=== PATIENT | female | born 1950 | race Caucasian/White ===

== ENCOUNTER 2020-10-12 13:55 | Outpatient (CLI) | payer MEDICARE, OTHER ==
[~2020-10-12 13:55] MED LIST: ESTR-9 PO; LISI-232 PO; MULT-910 PO
== END 2020-10-12 23:59 | disposition home or self-care (01) ==
LOC: RT 13:55
PROVIDERS: ATTEND Internal Medicine
DX: R94.2 Abnormal results of pulmonary function studies (principal); J44.1 Chronic obstructive pulmonary disease with (acute) exacerbation
CPT/HCPCS: 94010; 94727; 94729

== ENCOUNTER 2022-01-19 10:38 | Emergency (ER) | payer MEDICARE, OTHER ==
[~2022-01-19] VITALS: Ht 162.6 cm; Wt 0.7 kg
[2022-01-19 10:58] VITALS: BP 145/95
[2022-01-19] MEDS ORDERED: LORazepam 1 MG tablet PO ONE (11:25)
[2022-01-19] MEDS ORDERED: iohexol 300mg/ml 100ml inj. ONE (12:41)
[2022-01-19 12:56] LABS: ALBUMIN 3.9 G/DL (3.4-5.0); ANION GAP 9 (8-16); BLOOD UREA NITROGEN 12 MG/DL (7-18); BUN/CREATININE RATIO 16.9 (6.6-38.0); CALCIUM 10.1 MG/DL (8.5-10.1); CHLORIDE 98 MMOL/L (99-107); CREATININE 0.71 MG/DL (0.40-0.90); GLUCOSE 101 MG/DL (70-104); POTASSIUM 3.6 MMOL/L (3.5-5.1); SODIUM 136 MMOL/L (135-145); eGFR 81 ML/MIN
[2022-01-19 13:04] LABS: BASOPHILS % (AUTO) 0.4 % (0-1); EOSINOPHILS # (AUTO) 0.1 X10'3 (0-0.9); EOSINOPHILS % (AUTO) 1.4 % (0-6); HEMATOCRIT 41.1 % (35.0-45.0); HEMOGLOBIN 13.3 g/dl (12.0-16.0); LYMPHOCYTES # (AUTO) 2.5 X10'3 (1.1-4.8); LYMPHOCYTES % (AUTO) 27.8 % (21-51); MEAN CORPUSCULAR HEMOGLOBIN 23.3 PG (27.0-31.0); MEAN CORPUSCULAR HGB CONC 32.3 g/dL (33.0-36.5); MEAN CORPUSCULAR VOLUME 72.2 FL (78-98); MEAN PLATELET VOLUME 7.7 FL (7.4-10.4); MONOCYTES # (AUTO) 0.5 X10'3 (0-0.9); MONOCYTES % (AUTO) 5.4 % (2-12); NEUTROPHILS # (AUTO) 5.8 X10'3 (1.8-7.7); PLATELET COUNT 363 X10'3 (140-440); RED CELL DISTRIBUTION WIDTH 14.8 % (11.5-14.5); WHITE BLOOD COUNT 8.9 X10'3 (4.5-11.0)
[2022-01-19] MEDS ORDERED: AMOX-580 PO (13:58)
== END 2022-01-19 14:15 | disposition home or self-care (01) ==
LOC: ER 10:38
DX: K11.20 Sialoadenitis, unspecified (principal)
CPT/HCPCS: 36415; 70491; 80048; 85025; 99285; J3490; Q9967

== ENCOUNTER 2022-05-21 08:43 | Inpatient (IN) | payer MEDICARE, OTHER ==
[2022-05-09 14:41] LABS: BASOPHILS # (AUTO) 0.1 X10'3 (0-0.2); BASOPHILS % (AUTO) 0.6 % (0-1); EOSINOPHILS # (AUTO) 0.1 X10'3 (0-0.9); EOSINOPHILS % (AUTO) 1.5 % (0-6); LYMPHOCYTES # (AUTO) 3.2 X10'3 (1.1-4.8); MEAN CORPUSCULAR HEMOGLOBIN 23.7 PG (27.0-31.0); MEAN CORPUSCULAR HGB CONC 32.6 g/dL (33.0-36.5); MEAN CORPUSCULAR VOLUME 72.9 FL (78-98); MEAN PLATELET VOLUME 7.6 FL (7.4-10.4); MONOCYTES # (AUTO) 0.5 X10'3 (0-0.9); MONOCYTES % (AUTO) 5.8 % (2-12); NEUTROPHILS # (AUTO) 5.2 X10'3 (1.8-7.7); NEUTROPHILS % (AUTO) 57.1 % (42-75); PRE OP HEMATOCRIT 41.6 % (35.0-45.0); PRE OP HEMOGLOBIN 13.6 g/dL (12.0-16.0); PRE OP PLATELET COUNT 396 X10'3 (140-440); RED BLOOD COUNT 5.71 X10'6 (4.20-5.60); RED CELL DISTRIBUTION WIDTH 15.5 % (11.5-14.5)
[2022-05-09 15:04] LABS: ALBUMIN 4.1 G/DL (3.4-5.0); ALBUMIN/GLOBULIN RATIO 1.2 (1.1-1.5); ALKALINE PHOSPHATASE 96 IU/L (46-116); BLOOD UREA NITROGEN 11 MG/DL (7-18); BUN/CREATININE RATIO 15.9 (6.6-38.0); CHLORIDE 100 MMOL/L (99-107); CREATININE 0.69 MG/DL (0.40-0.90); PRE OP ALT 21 U/L (30-65); PRE OP ANION GAP 6 (8-16); PRE OP AST 15 U/L (10-37); PRE OP BILIRUB, TOTAL 0.6 MG/DL (0.0-1.0); PRE OP GLUCOSE 98 MG/DL (70-104); PRE OP POTASSIUM 3.6 MMOL/L (3.4-5.1); PRE OP SODIUM 138 MMOL/L (135-145); TOTAL CARBON DIOXIDE 31.6 MMOL/L (24-32); TOTAL PROTEIN 7.4 G/DL (6.4-8.2); eGFR 83 ML/MIN
[2022-05-21] VITALS (38 sets, daily range): BP systolic 135–186; BP diastolic 71–145
[~2022-05-21] VITALS: Ht 160 cm; Wt 78.1 kg
[~2022-05-21 08:43] MED LIST changes: +ALBU18HF2 INH; +ASPI81TA52 PO; +ATOR10TA70 PO; +CALC600T22 PO; +CHOL100024 PO; -ESTR-9 PO; +FLUT12AE5 INH; +GABA300C PO; -LISI-232 PO; +LISI1TAB53 PO; +TRAM50TA2 PO; +VITA1TAB20 PO; +cefazolin 2gm/D5W 100mL 100 ML IV ONE; +famotidine 20mg tablet PO ONE; +ringers solution, lacted 1,000 ML IV SCH; +tranexamic acid 650mg tablet PO ONE; +vancomycin 1,500 MG in NS 300ml IV soln IV ONE
[2022-05-21] MEDS ORDERED: fentaNYL/PF 50MCG/1 ML 2ML syringe ONE (11:31)
[2022-05-21] MEDS ORDERED: MIDAZolam 1 MG/ML 5ML VIAL ONE (11:31)
[2022-05-21] MEDS ORDERED: propofol inj 20 ML IV ONE (11:32)
[2022-05-21] MEDS ORDERED: ROPIVAcaine 0.5% (5mg/ml) 30ml vial ONE (12:05)
[2022-05-21] MEDS ORDERED: proCHLORperazine 10 MG/2 ml inj IV PRN (14:10)
[2022-05-21] MEDS ORDERED: ROPIVAcaine 0.2%/PF PUMP/bolus 545 ML INTERSCALE SCH (14:10)
[2022-05-21] MEDS ORDERED: morphine 2 MG/ML inj. syringe IV PRN (14:10)
[2022-05-21] MEDS ORDERED: ROPIVAcaine 0.2% (10 MG/5 ML) BOLUS INJECTION INTERSCALE PRN (14:10)
[2022-05-21] MEDS ORDERED: morphine 4 MG/ML inj SYRINge IV PRN (14:10)
[2022-05-21] MEDS ORDERED: ringers solution, lacted 1,000 ML IV SCH (14:10)
[2022-05-21] MEDS ORDERED: meperidine/PF 25mg/ml syringe IV PRN ×3 (14:10)
[2022-05-21] MEDS ORDERED: ondansetron/PF 4mg/2ml inj IV PRN ×2 (14:10→14:40)
[2022-05-21] MEDS ORDERED: ondansetron/PF 4mg/2ml inj ONE (14:16)
[2022-05-21] MEDS ORDERED: dexamethasone sod phosphate 4mg/ml inj. ONE (14:17)
--- NOTE | 2022-05-21 14:35 | NUR ---
Received from OR via ortho bed , accompanied by Anesthesiologist Dr. Grover and report given by Anesthesiolgist. Pt arousable, but not yet able to wiggle finger on right hand. Good csm to right fingers. SCD's on. IV to left wrist patent. Pt came out hypertensive 180/100s. MD Dr. Grover aware.
[2022-05-21] MEDS ORDERED: diphenhydrAMINE 25mg capsule PO PRN ×2 (14:40)
[2022-05-21] MEDS ORDERED: HYDROmorphone 1 mg/ml syringe IV PRN (14:40)
[2022-05-21] MEDS ORDERED: magnesium hydroxide 30ml (MOM) UD suspension PO PRN (14:40)
[2022-05-21] MEDS ORDERED: oxyCODONE IR 5mg (immed. release) tablet PO PRN ×2 (14:40)
[2022-05-21] MEDS ORDERED: HYDROcodone/acetaminophen 10/325mg tab PO PRN ×2 (14:40)
[2022-05-21] MEDS ORDERED: HYDROmorphone inj. 0.5 MG/0.5 ML DISP.SYRIN IV PRN (14:40)
[2022-05-21] MEDS ORDERED: bisacodyl 10mg suppository rectal RC PRN (14:40)
[2022-05-21] MEDS ORDERED: albuterol 2.5 MG/3 ML nebule NEB PRN (14:40)
[2022-05-21] MEDS ORDERED: acetaminophen 325mg tablet PO PRN (14:40)
[2022-05-21] MEDS ORDERED: PCA WASTE DOCUMENTATION 1 MG ML MC SCH (14:40)
[2022-05-21] MEDS ORDERED: traMADol 50MG tablet PO PRN (14:40)
[2022-05-21] MEDS ORDERED: labetalol 20mg/4ml (5mg/ml) syringe IV PRN ×2 (14:50→15:15)
[2022-05-21] MEDS ORDERED: ceFAZolin/D5W- 1GM premix 50 ML IV SCH (16:00)
[2022-05-21] MEDS: albuterol 2.5 MG/3 ML nebule NEB SCH ×2 (16:48→20:41)
--- NOTE | 2022-05-21 19:25 | NUR ---
PATIENT TAKEN TO SURGICAL FLOOR ROOM WITH ALL BELONGINGS AND HOOKED UP TO ALL MONITORS IN ROOM AND REPORT GIVEN TO RN WHO HAS TAKEN OVER PATIENT CARE. Addendum: 05/21/22 at 1931 by Alda Goncalves RN Amended: Links added.
--- NOTE | 2022-05-21 19:25 | NUR ---
RECEIVED REPORT FROM RECOVER ROOM SARAH CLAY. RECEIVED PT TO ROOM 360B VIA BED. ORIENTED TO ROOM AND ROUTINE, CALL LIGHT IN REACH. NO COMPLAINTS, DINNER AT BEDSIDE. Addendum: 05/21/22 at 2331 by Victoria Victor RN Amended: Links added.
[2022-05-21] MEDS ORDERED: vancomycin/NS 1 GM ADD-VANTAGE 250 ML IV SCH (20:00)
--- NOTE | 2022-05-21 20:00 | NUR ---
CAP REFILL RIGHT HAND WNL, CAN WIGGLE FINGERS HAS SOME TINGLING, STAT3S GETTING SENSATION BACK. ARM IN SLING. Addendum: 05/21/22 at 2344 by Victoria Victor RN Amended: Links added.
[2022-05-21] MEDS: acetaminophen 325mg tablet PO SCH (20:36)
[2022-05-21] MEDS: gabapentin 300mg capsule PO SCH (20:37)
[2022-05-21] MEDS: budesonide 0.5mg/2ml UD nebule IH SCH (20:40)
[2022-05-21] MEDS ORDERED: atorvastatin 10mg tablet PO SCH (21:00)
[2022-05-21] MEDS ORDERED: sennosides 8.6mg tablet PO SCH (21:00)
[2022-05-21] MEDS: ceFAZolin/D5W- 1GM premix 50 ML IV SCH (21:23)
[2022-05-22] MEDS: acetaminophen 325mg tablet PO SCH ×2 (01:33→08:49)
[2022-05-22 02:00] VITALS: BP 164/81
[2022-05-22] MEDS: ceFAZolin/D5W- 1GM premix 50 ML IV SCH (04:43)
[2022-05-22 05:05] LABS: BASOPHILS % (AUTO) 0.1 % (0-1); EOSINOPHILS % (AUTO) 0 % (0-6); HEMATOCRIT 36.6 % (35.0-45.0); HEMOGLOBIN 11.9 g/dl (12.0-16.0); LYMPHOCYTES # (AUTO) 1.5 X10'3 (1.1-4.8); LYMPHOCYTES % (AUTO) 14.3 % (21-51); MEAN CORPUSCULAR HEMOGLOBIN 23.9 PG (27.0-31.0); MEAN CORPUSCULAR HGB CONC 32.4 g/dL (33.0-36.5); MEAN CORPUSCULAR VOLUME 73.7 FL (78-98); MEAN PLATELET VOLUME 8.1 FL (7.4-10.4); MONOCYTES # (AUTO) 0.8 X10'3 (0-0.9); MONOCYTES % (AUTO) 7.5 % (2-12); NEUTROPHILS # (AUTO) 8.1 X10'3 (1.8-7.7); NEUTROPHILS % (AUTO) 78.1 % (42-75); PLATELET COUNT 291 X10'3 (140-440); RED BLOOD COUNT 4.97 X10'6 (4.20-5.60); RED CELL DISTRIBUTION WIDTH 15.4 % (11.5-14.5); WHITE BLOOD COUNT 10.4 X10'3 (4.5-11.0)
[2022-05-22 05:20] LABS: ANION GAP 6 (8-16); CHLORIDE 102 MMOL/L (99-107); POTASSIUM 4.2 MMOL/L (3.5-5.1); SODIUM 134 MMOL/L (135-145); TOTAL CARBON DIOXIDE 25.6 MMOL/L (24-32)
--- NOTE | 2022-05-22 06:16 | NUR ---
Problems reprioritized. Patient report given, questions answered & plan of care reviewed with SARAH ROBLERO. Addendum: 05/22/22 at 0617 by Victoria Victor RN Amended: Links added.
[2022-05-22 07:00] VITALS: BP 138/91
[2022-05-22] MEDS ORDERED: HYDROchlorothiazide 25mg tablet PO SCH (08:00)
[2022-05-22] MEDS ORDERED: aspirin 81mg, enteric-coated 1 TAB TABLET.DR PO SCH (08:00)
[2022-05-22] MEDS ORDERED: multivitamins, therapeutics tablet PO SCH (08:00)
[2022-05-22] MEDS ORDERED: lisinopril 20mg tablet PO SCH (08:00)
[2022-05-22] MEDS ORDERED: calcium carbonate 500mg tablet PO SCH (08:00)
[2022-05-22] MEDS ORDERED: aspirin 325mg tablet PO SCH (08:30)
[2022-05-22] MEDS: budesonide 0.5mg/2ml UD nebule IH SCH (08:49)
[2022-05-22] MEDS: albuterol 2.5 MG/3 ML nebule NEB SCH (08:49)
[2022-05-22 08:50] VITALS: BP_SYST 138
[2022-05-22] MEDS: gabapentin 300mg capsule PO SCH (08:50)
--- NOTE | 2022-05-22 10:53 | NUR ---
Joint surgery consult: Pt s/p R shoulder surgery this admit per EMR. Pt/SO seen by RD for written/verbal high protein diet ed w/ RD contact information provided. Pt reports R hand dominant issue cutting foods will chop meats for ease of PO; dietary notified. RD encouraged pt/SO to contact dietitian's office if further nutrition questions/concerns. Addendum: 05/22/22 at [address] Amended: Links added.
--- NOTE | 2022-05-22 15:29 | NUR ---
Pt DC'd as per Dr's orders. Pt was unhooked from IV. Education was provided to family and pt at bedside, all questions were answered. Pt stated they already have a follow up appointment and will attend. Pt was wheeled down by front lobby staff and will leave in a private vehicle destined to home.
[2022-05-23] MEDS ORDERED: acetaminophen 325mg tablet PO PRN (14:40)
== END 2022-05-22 13:51 | disposition home or self-care (01) | DRG 483 ==
LOC: PAS IN 08:43 → SUR 3N 19:25
PROVIDERS: ADMIT Orthopaedic Surgery; ATTEND Orthopaedic Surgery
PROC: 0LS30ZZ Reposition Right Upper Arm Tendon, Open Approach (ICD-10-PCS; 2022-05-21)
PROC: 0RRJ0JZ Replacement of Right Shoulder Joint with Synthetic Substitute, Open Approach (ICD-10-PCS; principal; 2022-05-21 12:18)
DX: M19.011 Primary osteoarthritis, right shoulder (principal); M75.21 Bicipital tendinitis, right shoulder; G89.29 Other chronic pain; M65.811 Other synovitis and tenosynovitis, right shoulder
CPT/HCPCS: 36415; 71046; 80051; 80053; 82948; 85025; 87081; 94640; 94760; 97116; 97535; A4565; A4615; A4618; A7000; C1713; C1776; G0378; J0690; J1100; J2250; J2405; J2704; J2795; J3010; J3370; J3490; J7120